=== PATIENT | female | born 1985 | race Caucasian/White ===

== ENCOUNTER → 2021-08-13 | Day surgery (SDC) | payer OTHER ==
[~2021-08-13] MED LIST: COLACE 100MG C100 MG PO; HYDROCODON-ACE1 EAC4 PO; IBU600 MG PO; IBUPROFEN600 MG PO; NORCO 5-325 TA1 EACH PO; TRANDATE200 MG PO
[2021-08-13 07:15] LABS: HEMOGLOBIN 12.9 gm/dl (12.3-15.3); RED BLOOD COUNT 4.27 M/UL (4.00-5.10); WHITE BLOOD COUNT 6.5 K/UL (4.5-11.0)
== END | disposition home or self-care (01) ==
LOC: OR 08-12 09:45
PROVIDERS: Obstetrics & Gynecology
DX: O02.1 Missed abortion (principal); Z88.2 Allergy status to sulfonamides; Z91.012 Allergy to eggs; Z91.011 Allergy to milk products; Z20.822 Contact with and (suspected) exposure to COVID-19
CPT/HCPCS: 36415; 81001; 85025; 86850; 86900; 86901; J1100; J1170; J1885; J2250; J2405; J2704; J2790; J2795; J3010; J7120; U0002